=== PATIENT | male | born 1990 | race Caucasian/White ===

== ENCOUNTER 2017-02-11 19:56 | Emergency (ER) | payer OTHER ==
[2017-02-11 20:40] VITALS: BP 108/68; PULSE 83; RESP 20; TEMP 98.2; O2SAT 100
== END 2017-02-11 21:50 | disposition left against medical advice (07) ==
LOC: C.ER 19:56
DX: M25.562 Pain in left knee (principal); M25.561 Pain in right knee; Z02.9 Encounter for administrative examinations, unspecified